=== PATIENT | female | born 1935 | race Caucasian/White ===

== ENCOUNTER 2017-04-23 12:25 | Outpatient (CLI) | payer MEDICARE ==
--- NOTE | 2017-04-23 13:26 | RAD ---
LUMBAR SPINE SERIES THREE VIEWS INCLUDING FLEXION AND EXTENSION: History: Low back pain radiating to the right hip. FINDINGS: Vertebral bodies maintain normal height. Mild disc narrowing is seen at the L2-3, L3-4, and L5-S1. M ore pronounced disc narrowing is seen at the L4-5 level. There are marked degenerative facet changes present. There is spondylolisthesis of L4 on L5 that appears relatively staple on the flexion and e xtension views. IMPRESSION: Moderate arthritic changes of the spine. POS: [facility]
== END 2017-04-23 12:26 | disposition home or self-care (01) ==
LOC: TBSIIMAG 12:25
PROVIDERS: ATTEND Neurological Surgery
DX: M54.16 Radiculopathy, lumbar region (principal); M46.92 Unspecified inflammatory spondylopathy, cervical region
CPT/HCPCS: 72100

== ENCOUNTER 2017-04-30 09:01 | Outpatient (CLI) | payer MEDICARE ==
[~2017-04-30 09:01] MED LIST: Gadobenate Dimeglumine 529 MG/1 ML (20ML VIAL) ONE
--- NOTE | 2017-04-30 11:11 | MRI ---
MRI OF THE LUMBAR SPINE WITH AND WITHOUT IV CONTRAST 04/30/17 PROVIDED CLINICAL HISTORY: Lumbar radiculopathy. FINDINGS: Five lumbar vertebral bodies are noted. There is grade I anterolisthesis of L3 on L4 and L4 on L5. V ertebral body heights appear preserved. There is trace anterolisthesis of L5 on S1. No focal concern ing regional marrow signal abnormality. The conus medullaris is normal in signal and terminates at a n appropriate level. The visualized extraspinal soft tissues appear unremarkable. At L1-2, there is no significant central canal or foraminal narrowing apparent. There is mild bilate ral facet arthritis. At L2-3, there is a broad based disc bulge and bilateral facet arthritis. There is mild central jemal l stenosis. There is no significant foraminal narrowing apparent. At L3-4, broad based disc bulge and bilateral facet arthritis result in moderate to severe central c anal narrowing and mild to moderate bilateral foraminal narrowing. At L4-5, there is a broad based disc bulge and bilateral facet arthritis. Postoperative changes of r ight hemilaminotomy are suspected. There is deformation of the thecal sac by conspicuous osteophyte formation arising from the left facet joint and directed medially. This deforms the thecal sac and d isplaces it right laterally. There is subsequent narrowing of the thecal sac in the transverse dimen camryn but no significant narrowing in the AP dimension. There is effacement of each subarticular issac on such that there is potential for impingement on the traversing L5 nerve roots bilaterally. There is moderate to severe bilateral foraminal narrowing. At L5-S1, there is a broad based disc bulge and bilateral facet arthritis. There is mild central can al stenosis. There is mild bilateral foraminal narrowing. There is no pathologic contrast enhancement identified. Contrast enhanced related postoperative harper ges and facet arthritis is noted. IMPRESSION: Disc and facet degenerative changes involving the lumbar spine producing areas of canal and foramina l narrowing as described above. POS: [facility]
== END 2017-04-30 09:02 | disposition home or self-care (01) ==
LOC: SCSMRI 09:01
PROVIDERS: ATTEND Neurological Surgery
DX: M47.26 Other spondylosis with radiculopathy, lumbar region (principal); M48.061 Spinal stenosis, lumbar region without neurogenic claudication
CPT/HCPCS: 72158; A9579

== ENCOUNTER 2017-09-16 10:00 | Outpatient (CLI) | payer MEDICARE | END 2017-09-16 10:01 | disposition home or self-care (01) | LOC: BICMAMMO 10:00 | PROVIDERS: ATTEND Family Medicine | DX: N64.4 Mastodynia (principal); R92.1 Mammographic calcification found on diagnostic imaging of breast | CPT/HCPCS: 77066; G0279 ==

== ENCOUNTER 2018-04-24 19:04 | Emergency (ER) | payer MEDICARE | END 2018-04-24 19:32 | disposition home or self-care (01) | LOC: SCSER 19:04 | DX: S90.862A Insect bite (nonvenomous), left foot, initial encounter (principal); S90.861A Insect bite (nonvenomous), right foot, initial encounter; E78.5 Hyperlipidemia, unspecified; Z86.73 Personal history of transient ischemic attack (TIA), and cerebral infarction without residual deficits; I10 Essential (primary) hypertension; W57.XXXA Bitten or stung by nonvenomous insect and other nonvenomous arthropods, initial encounter | CPT/HCPCS: 99282 ==

== ENCOUNTER 2018-08-26 08:56 | Outpatient (CLI) | payer MEDICARE ==
--- NOTE | 2018-08-26 13:28 | PET ---
PET CT: HISTORY: 83-year-old female with B-cell lymphoma. Exam requested for restaging. TECHNIQUE: PET scanning with CT attenuation correction is performed from the base of the brain to the proximal t highs following the intravenous administration of 12.5 mCi F18-FDG in the right antecubital fossa. Im aging performed after an uptake interval of 55 minutes. COMPARISON: None. CORRELATION: PET CT report dated 05/27/18 from [facility]. FINDINGS: Multiple hypermetabolic lymph nodes are seen, including the neck, chest, axilla, abdomen, pelvis, and inguinal regions. These lymph nodes demonstrate SUVs as follows: Left retropharyngeal lymph node 7.8, left upper poste rior neck 6, right supraclavicular 4, right axillary 2.5, left axillary 3.7, anterior superior medias tinum 6, right paratracheal 6.1, precarinal 6.8, subcarinal 6.8, right hilum 10.6, and left paracardi ac 2.8. Left paraaortic 6.2, right external iliac 5, left external iliac 3.6, and right inguinal 9.2. Correlation with the previous report demonstrates interval resolution in the left supraclavicular reg ion, new hypermetabolic lymph nodes in the left retropharyngeal, left axillary, and both external sunday ac lymph nodes, and interval increase in the right inguinal lymph nodes. Most of the remainder are st able and some demonstrate interval reduction in the SUV values. The left paracentral lymph node is ne w and there has been interval increase in SUV of the left paraaortic lymph nodes. IMPRESSION: Mixed metabolic response to therapy (Deauville criteria 5). POS: [facility]
== END 2018-08-26 08:57 | disposition home or self-care (01) ==
LOC: PET 08:56
PROVIDERS: ATTEND Internal Medicine Hematology & Oncology
DX: C85.10 Unspecified B-cell lymphoma, unspecified site (principal)
CPT/HCPCS: 78815; A9552; 36415; 80053; 83615

== ENCOUNTER 2018-11-04 08:29 | Outpatient (CLI) | payer MEDICARE ==
--- NOTE | 2018-11-04 11:33 | MRI ---
Exam: Brain MRI with and without contrast HISTORY: Mild coughing impairment. Right-sided pain/headache. Lymphoma. COMPARISON: None FINDINGS: Gradient echo sequence: No hemorrhage Calvarium: Appropriate T1 marrow signal intensity Midline brain parenchyma: Unremarkable Cerebrum:No parenchymal mass, mass effect or midline shift. Age-appropriate brain volume. Cortical gr ay-white matter differentiation is preserved. Minimal T2 and FLAIR white matter hyperintensities likely due to chronic small vessel ischemic change. Ventricles: No evidence of hydrocephalus. Sinuses and mastoid air cells: Right maxillary sinus mucous retention cyst. Diffusion: Central arterial flow is maintained. Absent restricted diffusion. Postcontrast images: No pathologic enhancement of the brain parenchyma. IMPRESSION: 1. No acute intracranial process. 2. Right mastoid sinus mucous retention cyst.
== END 2018-11-04 08:30 | disposition home or self-care (01) ==
LOC: SCSMRI 08:29
PROVIDERS: ATTEND Psychiatry & Neurology Neurology
DX: G31.84 Mild cognitive impairment of uncertain or unknown etiology (principal); H74.8X1 Other specified disorders of right middle ear and mastoid
CPT/HCPCS: 70553; 82565

== ENCOUNTER 2018-12-09 09:28 | Outpatient (CLI) | payer MEDICARE ==
[2018-12-09] MEDS ORDERED: ISOVUE-370 76%-LOCM 1 ML ONE (11:38)
--- NOTE | 2018-12-09 13:48 | CT ---
CT NECK SOFT TISSUES, WITH CONTRAST: CLINICAL INDICATION:Lymphoma. COMPARISON:Reference is made to PET CT 08/26/2018. FINDINGS: Aerodigestive tract:There is mild focal soft tissue prominence at the left posterior oropharynx, with 1 cm x 0.8 cm focal soft tissue prominence. This could relate to a retropharyngeal lymph node or alternatively focal soft tissue mucosal prominence, and is difficult to further delineate due to the extensive beam hardening/streak artifact of this region from dental hardware. Parotid gland: No intrinsic mass, or inflammation. Submandibular glands:Mild atrophy of the submandibular glands. Lymph nodes: Within the left, medial supraclavicular fossa, there is a prominent lymph node measuring 1.4 x 0.9 cm. Thyroid gland:Unremarkable Incidental findings:None of significance. IMPRESSION: 1. Focal soft tissue prominence of the posterior left oropharynx which could relate to a mildly enla rged retropharyngeal lymph node versus focal mucosal prominence. Recommend correlation with direct visualization, and imaging follow-up may also be obtained for continued assessment. 2. Enlarged left supraclavicular fossa lymph node. Transcribed Date/Time: 12/09/2018 2:23 PM
--- NOTE | 2018-12-09 14:09 | CT ---
CT CHEST AND ABDOMEN AND PELVIS PERFORMED WITH IV CONTRAST ENHANCEMENT: Date: 12/09/18 HISTORY: Nonfollicular lymphoma follow-up. COMPARISON: A PET scan examination that was performed on 08/26/18. FINDINGS: The lungs are clear of any infiltrative process. There are no pulmonary nodules identified. There is no evidence of any pleural effusions. Within the mediastinum, there is an enlarged azygos node seen on axial image 29 measuring 17 mm in si ze. I do not appreciate any anterior mediastinal adenopathy. There is a precarinal lymph node measuri ng 10 mm and is felt to be similar to the prior examination. There is a small right hilar lymph node seen on axial image 31 and measures 9-10 mm. I do not appreciate any subcarinal lymphadenopathy. Ther e are small axillary lymph nodes that are similar to the previous examination. One of the larger of t hese is 7 mm within the right axilla. This appears stable. CT of abdomen was performed with contrast enhancement. The liver, spleen, pancreas, and gallbladder r egions all appear unremarkable. Right and left adrenal glands, and right and left kidneys are normal in size. There are small periaor tic lymph nodes, which are subcentimeter in size. There is no significant mesenteric adenopathy. CT of pelvis was performed with contrast enhancement. Small, subcentimeter external iliac nodes are p resent. The right inguinal node that showed increased uptake is similar in size, seen on axial image 107, measuring 8 mm in short axis dimension. Review of osseous structures does not show any lytic or blastic bony changes. IMPRESSION: Fairly stable appearance to the chest, abdomen, and pelvis as compared to the recent PET CT. Some of the lymph nodes are difficult to definitely compare given the noncontrast nature of the previous PET scan. The right azygos and right hilar node, and pretracheal nodes, as well as axillary nodes, all ap pear similar in size. All of the periaortic nodes seen are subcentimeter in size. The external iliac chain nodes and right inguinal node also appear stable, not significantly enlarged on CT examination. POS: [facility]
== END 2018-12-09 09:29 | disposition home or self-care (01) ==
LOC: BICCT 09:28
PROVIDERS: ATTEND Internal Medicine Hematology & Oncology
DX: C83.81 Other non-follicular lymphoma, lymph nodes of head, face, and neck (principal); R59.0 Localized enlarged lymph nodes
CPT/HCPCS: 70491; 71260; 74177; Q9966

== ENCOUNTER 2019-03-02 09:29 | Outpatient (CLI) | payer MEDICARE ==
[~2019-03-02 09:29] MED LIST changes: -Gadobenate Dimeglumine 529 MG/1 ML (20ML VIAL) ONE; +Iopamidol 300 61% 100 ML VIAL FS ONE
--- NOTE | 2019-03-02 14:42 | CT ---
CT NECK: Date: 03/02/19 COMPARISON: 12/09/18. HISTORY: Nonfollicular lymphoma. TECHNIQUE: Axial CT imaging obtained at 2 mm intervals from the skull base through the lung apices with IV contr ast. Coronal and sagittal reformatted imaging obtained. FINDINGS: The imaged skull base is grossly unremarkable. There is mucosal thickening involving the alveolar rec ess of bilateral maxillary sinuses, right greater than left. The visualized lung apices appear grossly unremarkable. Orbits/globes demonstrate no acute findings. The retroantral fat and the parapharyngeal fat is clear bilaterally. The parotid glands and the submandibular glands are unremarkable. The oral tongue and floor of mouth are grossly unremarkable. Tonsillar pillars, epiglottis, and preep iglottic fat, hyoid bone, thyroid cartilage, cricoid cartilage, and thyroid gland appear grossly unre markable. There is prominent atherosclerotic calcification involving the distal CCA and proximal ICA bilaterall y. There may be underlying hemodynamically significant stenosis in these regions, not well characteri zed on this examination. There is also significant atherosclerotic calcification near the origin of t he right subclavian artery. There is a left supraclavicular lymph node measuring 8.0 mm in short axis dimension, best seen on axi al image 87, stable when compared to the prior exam. No posterior triangle lymphadenopathy is evident on either side. No lymphadenopathy in the level I or level II regions on either side. Review of the osseous structures demonstrate no acute findings. There is multilevel postoperative and degenerative change within the cervical spine as detailed above. There is minimal mucosal prominence involving the posterolateral aspect of the oropharynx on the left , unchanged when compared to the prior exam. IMPRESSION: Stable CT examination of the neck. Focal area of mucosal prominence in the posterior left oropharynge al region is unchanged and of uncertain clinical significance. As noted on the prior examination, the re is a stable, mildly enlarged left supraclavicular lymph node. POS: [facility]
--- NOTE | 2019-03-02 15:26 | CT ---
CT CHEST AND ABDOMEN AND PELVIS: Date: 03/02/19 COMPARISON: 12/09/18. HISTORY: Nonfollicular lymphoma. TECHNIQUE: Axial CT imaging is obtained at 5 mm intervals from the thoracic inlet through the pubic symphysis wi th intravenous and oral contrast. Coronal reformatted imaging obtained. FINDINGS: There are subcentimeter stable axillary lymph nodes noted bilaterally, right larger than left. There is a right hilar lymph node which measures approximately 1.3 cm in short axis dimension, which appear s decreased in size when compared to the prior examination. There is a precarinal node measuring 9 mm in short axis dimension, unchanged. No left hilar adenopathy. There is scattered atherosclerotic evelia cification of the aortic arch in the descending thoracic aorta. Scattered coronary arterial calcifica tion is present. There is no pneumothorax noted on either side. There is no pleural, pericardial, or mediastinal fluid seen. No discrete/dominant pulmonary parenchymal mass lesion or nodule noted within the lung parenchyma on either side. There is an area of increased linear density within the inferomedial aspect of the right middle lobe, less conspicuous than on the prior examination. On the prior examination, there was a 1.0 cm right hilar lymph node on image 31 which appears slightl y decreased in size on this exam. Osseous structures of the chest demonstrate degenerative change involving the thoracic spine and bila teral shoulders with no discrete lytic or blastic bone lesions seen. No free intraperitoneal air or fluid is seen. The liver, gallbladder, spleen, pancreas, adrenal glands, and kidneys demonstrate no acute findings. There is scattered atherosclerotic calcification of the abdominal aorta and its branches. There are multiple subcentimeter left paraaortic lymph nodes present, some of which appear new when c ompared to the prior exam, and some of which appear enlarged when compared to the prior exam. This in cludes a few new left paraaortic lymph nodes inferior to the left renal vein measuring up to 8-9 mm i n short axis dimension. There is a 7 mm short axis dimension left paraaortic lymph node on image 70 w hich is likely new. There is a node adjacent to the left common iliac artery on image 79 measuring 9-10 mm in short axis dimension, previously measuring in the 5-6 mm range. There is a new mildly enlarged node adjacent to the right common iliac artery on image 81 measuring 7 -8 mm in short axis dimension. No lymphadenopathy is seen along the internal iliac chain or in the in guinal region on either side. There is a mildly enlarged lymph node anterior to the acetabulum on the left measuring 9 mm in short axis dimension on image 103, not discretely seen on the prior examinati on. Review of the bowel appears grossly unremarkable. Osseous structures of the abdomen/pelvis demonstrate multilevel degenerative change within the lumbar spine. There is multilevel disc space narrowing with degenerative end plate change and facet hypertr ophy. IMPRESSION: Lymph nodes within the chest are stable and/or improved in size when compared to the prior examinatio n and no new lymphadenopathy is seen in the chest. Within the abdomen, there are new mildly enlarged lymph nodes within the retroperitoneum and left hem ipelvis as detailed above. This suggests mild progression of disease in the abdomen/pelvis. POS: [facility]
== END 2019-03-02 09:30 | disposition home or self-care (01) ==
LOC: SCSCT 09:29
PROVIDERS: ATTEND Internal Medicine Hematology & Oncology
DX: C83.81 Other non-follicular lymphoma, lymph nodes of head, face, and neck (principal); R59.0 Localized enlarged lymph nodes
CPT/HCPCS: 70491; 71260; 74177; Q9967

== ENCOUNTER 2019-07-20 09:24 | Outpatient (CLI) | payer MEDICARE ==
--- NOTE | 2019-07-20 13:41 | CT ---
CT NECK SOFT TISSUE WITH CONTRAST: CT CHEST WITH CONTRAST: CT ABDOMEN WITH CONTRAST: CT PELVIS WITH CONTRAST: HISTORY: Lymphoma. COMPARISON: 12/09/2018 and 03/02/2019 FINDINGS: NECK The visualized brain parenchyma is unremarkable. Stable opacification the right maxillary sinus. Stable focal mucosal prominence of the posterior left oropharyngeal region, unchanged. No abnormal en hancement or enhancing masses in the aerodigestive tract. Symmetric attenuation of the parotid and submandibular glands. Significant atherosclerotic disease involving the visualized cervical carotid arteries, incompletely evaluated Cervical spine vertebral body heights are maintained. No fracture. Severe degenerative disc disease w ith loss of disc space height and osteophyte formation at C3-C4, C4-C5, C5-C6 and C6-C7. Laminectomies at C4, C5 and C6 are noted. There is grade 1 anterolisthesis of C3 upon C4. Symmetric attenuation the paraspinal muscles. There are scattered nonspecific, nonenlarged soft tissue neck lymph nodes. There does appear to be in terval increased bilateral level 1A lymph nodes. Enlarged right level 1A lymph node measures 1.1 x 0.7 cm. Enlarged left level 1 lymph node measures 1 .1 x 0.9 cm. Additional bilateral enlarged level 1 lymph nodes are noted. Enlarged right level 2 lymph node measures 0.8 x 1.0 cm. Enlarged right level 5 lymph node measures 0.9 x 0.8 cm. Enlarged l eft level 5 lymph node measures 0.9 x 0.6 cm. CHEST Redemonstration of a large left supraclavicular lymph node currently measuring 1.3 x 1.7 cm. On the m ost recent prior, this lymph node measured 0.8 x 1.3 cm. Mediastinum: Enlarged precarinal lymph node, measuring 1.4 x 1.3 cm. Normal heart size. No significan t pericardial fluid. Atherosclerosis of a nonaneurysmal aorta. There are coronary artery calcifications. Enlarged right axillary lymph node measuring 1.9 x 1.5 cm. Previously, this lymph node was not enlarg ed. Trachea and central bronchi are patent. No pleural effusion or pneumothorax. Linear opacity in the medial aspect of the middle lobe is once again demonstrated and likely represen ts scar or atelectasis. In the left and right lung, no suspicious mass, consolidation or nodules. ABDOMEN Liver, spleen, pancreas and adrenal glands have appropriate enhancement. Patent portal vein. Unremarkable gallbladder. Symmetric enhancement of the kidneys. Mild fullness of the right intrarenal collecting system. Correl ate for a component of obstructive uropathy. There does not appear to be obstructing calculus in the right intrarenal or extrarenal collecting system. No gastrohepatic, retrocrural or periportal lymphadenopathy Decreased intra-abdominal fat limits evaluation for lymphadenopathy or inflammatory change. There is a conglomeration of enlarged left periaortic lymph nodes, measuring 1.0 x 1.4 cm. Redemonstr ation of a left periaortic lymph node measuring 0.5 x 0.9 cm, previously measuring 0.9 x 1.3 cm. There is an enlarged left external iliac lymph node, measuring 0.9 x 0.8 cm, previously measuring 0.9 x 1.1. Gastric mucosa, duodenum and multiple normal caliber small bowel loops. Unremarkable ileocecal juncti on. Normal caliber appendix. Contrast and fecal material in a nondistended, nondilated colon. Occasional diverticulum. No diverticulitis. PELVIS No mass, free air or free fluid. Surgically absent uterus. Unremarkable urinary bladder. Osseous structures: Heterogeneous signal intensity of the osseous structures, unchanged. IMPRESSION: 1. Findings suggesting recurrent/worsening disease. There appear to be enlarged bilateral level 1, ri ght level 2 and bilateral level 5 soft tissue neck lymph nodes. 2. Enlarging mediastinal lymph nodes as described above. 3. Enlarging right axillary lymph node. 4. Retroperitoneal lymphadenopathy appears to have slightly decreased. Transcribed Date/Time: 07/20/2019 2:13 PM
== END 2019-07-20 09:25 | disposition home or self-care (01) ==
LOC: SCSCT 09:24
PROVIDERS: ATTEND Internal Medicine Hematology & Oncology
DX: C83.81 Other non-follicular lymphoma, lymph nodes of head, face, and neck (principal); R59.0 Localized enlarged lymph nodes
CPT/HCPCS: 70491; 71260; 74177; 82565

== ENCOUNTER 2020-02-14 09:28 | Outpatient (CLI) | payer MEDICARE ==
--- NOTE | 2020-02-14 11:51 | PET ---
Nuclear medicine FDG PET/CT: (Positron emission tomography and computed tomography) DATE: 02/14/2020 HISTORY: 84-year-old female with C 83.81 colon other nonfollicular lymphoma, lymph nodes of head, face, and ne ck. Evaluate for response to treatment. COMPARISON: No prior PET scans. TECHNIQUE: IV injection of F-18 fluorodeoxyglucose (FDG) dose: 11.4 mCi. PET scan and attenuation correction CT performed from skull base to proximal thighs. PET scan and attenuation correction CT thinner slices performed through head and neck. FINDINGS: SUV (standard uptake values) numbers given are maximum SUVs. QCLR used. There are no hypermetabolic cervical lymph nodes. The 1.4 x 1 cm left supraclavicular lymph node mentioned on the CT chest abdomen and pelvis CT of 09/10, has decreased in size to 0.9 by cervical and 6 cm, and is not hypermetabolic: SUV 1.3. Multiple enlarged right axillary and subpectoral lymph nodes have increased in size compared to [address] Some examples: Most superior anterior of these, a right subpectoral lymph node SUV 6.5. Inferior to that, a large conglomeration of right axillary lymph nodes with SUV of 13.3. No hypermetabolic lesions within the rib cage. No pulmonary, mediastinal, or hilar involvement. No suspicious hypermetabolic activity within the abdominal cavity or pelvic cavity. Diffusely increased uptake along multiple muscle groups, including posterior neck and pelvis, represe nting muscle contraction activity.. IMPRESSION: 1) compared to chest CT of 09/27/2019, there has been interval worsening of right axillary and right s ubpectoral malignant lymphadenopathy. 2) no hypermetabolic cervical lymphadenopathy.
== END 2020-02-14 09:29 | disposition home or self-care (01) ==
LOC: PET 09:28
PROVIDERS: ATTEND Internal Medicine Hematology & Oncology
DX: C83.81 Other non-follicular lymphoma, lymph nodes of head, face, and neck (principal); R59.0 Localized enlarged lymph nodes
CPT/HCPCS: 78815; A9552

== ENCOUNTER 2020-04-27 09:02 | Outpatient (CLI) | payer MEDICARE ==
--- NOTE | 2020-04-27 12:30 | PET ---
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 The patient is curre ntly undergoing chemotherapy. Exam is requested to evaluate response to therapy and subsequent treat ment planning. TECHNIQUE: PET scanning with CT attenuation correction is performed from the vertex through the proximal thighs following the intravenous administration of 11.2 mCi [id number]. COMPARISON: 02/14/2020. FINDINGS: There is continued hypermetabolic activity in the right axillary lymphadenopathy with a maximum SUV o f 21.6 (previously 13.3). There is a new 1 cm hypermetabolic lymph node in the right lateral thoraci c chain with an SUV of 9.5. No kirti hypermetabolism is seen in the neck, mediastinum, hilar regions, left axilla, abdomen, pelvi s, or inguinal regions. The previously noted small focal density in the right middle lobe on the CT scan of 09/27/2019 demonst rates increased FDG localization on the current exam with an SUV of 3.9. No hypermetabolic liver, adrenal, or skeletal lesions are seen. There is physiologic activity in the GI and tracks in the brain. The CT scan used for attenuation correction demonstrates no evidence of pleural effusions or ascites. IMPRESSION: Interval worsening since 02/14/2020 (Deauville 5). POS: [facility]
== END 2020-04-27 09:03 | disposition home or self-care (01) ==
LOC: PET 09:02
PROVIDERS: ATTEND Internal Medicine Hematology & Oncology
DX: C83.31 Diffuse large B-cell lymphoma, lymph nodes of head, face, and neck (principal)
CPT/HCPCS: 78815; A9552

== ENCOUNTER 2020-09-11 08:20 | Outpatient (CLI) | payer MEDICARE ==
--- NOTE | 2020-09-11 10:35 | PET ---
Nuclear medicine FDG PET/CT: (Positron emission tomography and computed tomography) DATE: 09/11/2020 HISTORY: 85-year-old female C 83.81 other nonfollicular lymphoma, lymph nodes of head, face and neck. Evaluate for response to treatment. COMPARISON: 04/27/2020 TECHNIQUE: IV injection of F-18 fluorodeoxyglucose (FDG) dose: 9.7 mCi. PET scan and attenuation correction CT performed from skull base to proximal thighs. PET scan and attenuation correction CT thinner slices performed through head and neck. FINDINGS: SUV (standard uptake values) numbers given are maximum SUVs. QCLR used. Head and neck: No abnormally hypermetabolic suspicious areas in the head and neck. Right axilla: The previously demonstrated conglomeration of large number of very hypermetabolic, very enlarged righ t axillary and lateral chest wall lymph nodes, have resolved. No residual hypermetabolic activity in this area, and dramatic interval decrease in sizes of the nodes. Residual fat stranding present. B elow threshold uptake with SUV in this area of 1.5, compared to the normal contralateral left side where SUV is 0.9. However, there is a new small focus of hypermetabolic activity in the proximal right arm very close t o the posterior surface of the right proximal humerus. SUV 9.6. No suspicious hypermetabolic areas in the mediastinum, beto, or elsewhere in the thoracic cavity; or in the abdominal cavity or pelvic cavity. IMPRESSION: 1) dramatic interval decrease in size and FDG uptake involving the previously demonstrated right axil jamila and right thoracic chain lymphadenopathy. Currently SUV is below threshold of 2.5: only 1.5. 2) new small hypermetabolic focus in the posterior aspect of the proximal right arm. 3) if the patient has recently received a COVID 19 vaccination injected into the right arm, that woul d account for the new hypermetabolic focus in the right arm on the PET scan. In such a case, this PET scan would constitute complete response to therapy. However, if there has been no such\injection, this PET scan would constitute a new lesion, and therefore progressive disease. Recommend correlation with recent history.
== END 2020-09-11 08:21 | disposition home or self-care (01) ==
LOC: PET 08:20
PROVIDERS: ATTEND Internal Medicine Hematology & Oncology
DX: C83.81 Other non-follicular lymphoma, lymph nodes of head, face, and neck (principal); R59.0 Localized enlarged lymph nodes
CPT/HCPCS: 78815; A9552

== ENCOUNTER 2020-12-25 10:30 | Outpatient (CLI) | payer MEDICARE | END 2020-12-25 10:31 | disposition home or self-care (01) | LOC: PET 10:30 | PROVIDERS: ATTEND Internal Medicine Hematology & Oncology | DX: C85.90 Non-Hodgkin lymphoma, unspecified, unspecified site (principal); M89.8X8 Other specified disorders of bone, other site; R22.31 Localized swelling, mass and lump, right upper limb | CPT/HCPCS: 78815; A9552 ==

== ENCOUNTER 2021-02-25 10:55 | Outpatient (CLI) | payer MEDICARE | END 2021-02-25 10:56 | disposition home or self-care (01) | LOC: PET 10:55 | PROVIDERS: ATTEND Internal Medicine Hematology & Oncology | DX: C83.81 Other non-follicular lymphoma, lymph nodes of head, face, and neck (principal); M89.9 Disorder of bone, unspecified | CPT/HCPCS: 78815; A9552 ==